=== PATIENT | female | born 1965 | race Caucasian/White ===

== ENCOUNTER 2016-06-21 08:59 | Day surgery (SDC) | payer OTHER ==
[~2016-06-21] VITALS: Ht 153.7 cm; Wt 66.9 kg
[~2016-06-21 08:59] MED LIST: ATIVAN0.5 MG PO; CARAFATE1 GM PO; COZAAR25 MG PO; COZAAR50 MG PO; CYMBALTA30 MG PO; ENDOCET 5-3251 EACH PO; FISH OIL 1,0001 EAC7 PO; IBUPROFEN800 MG PO; IRON325 M1 PO; IRON325 MG PO; LEVAQUIN500 MG PO; LEXAPRO20 MG PO; MELOXICAM15 MG PO; NEURONTIN100 MG PO; OXYCODONE-ACET1 EACH PO; PERCOCET 7.51 TABLET PO; PRILOSEC40 MG PO; TRAMADOL HCL50 MG PO; XANAX0.5 MG PO
== END 2016-06-21 10:37 | disposition home or self-care (01) ==
LOC: PAIN 08:59 → SDC 09:15 → PAIN 10:37
DX: M47.814 Spondylosis without myelopathy or radiculopathy, thoracic region (principal); M50.30 Other cervical disc degeneration, unspecified cervical region; G89.29 Other chronic pain; M51.36 Other intervertebral disc degeneration, lumbar region; M25.551 Pain in right hip; I10 Essential (primary) hypertension; D50.9 Iron deficiency anemia, unspecified; K21.9 Gastro-esophageal reflux disease without esophagitis; Z86.73 Personal history of transient ischemic attack (TIA), and cerebral infarction without residual deficits; F41.9 Anxiety disorder, unspecified; R73.09 Other abnormal glucose; Z79.891 Long term (current) use of opiate analgesic; Z79.899 Other long term (current) drug therapy
CPT/HCPCS: J1030; J1100; J2250; J3010; S0020

== ENCOUNTER 2016-07-19 07:09 | Day surgery (SDC) | payer OTHER ==
[~2016-07-19] VITALS: Ht 153.7 cm; Wt 66.9 kg
[~2016-07-19 07:09] MED LIST changes: +NEURONTIN300 MG PO
== END 2016-07-19 08:33 | disposition home or self-care (01) ==
LOC: PAIN 07:09
DX: M47.814 Spondylosis without myelopathy or radiculopathy, thoracic region (principal); F41.9 Anxiety disorder, unspecified; M50.30 Other cervical disc degeneration, unspecified cervical region; M51.36 Other intervertebral disc degeneration, lumbar region; M54.6 Pain in thoracic spine; M54.5 Low back pain; Z86.73 Personal history of transient ischemic attack (TIA), and cerebral infarction without residual deficits; I10 Essential (primary) hypertension; G89.29 Other chronic pain; M25.551 Pain in right hip; E78.01 Familial hypercholesterolemia; D50.9 Iron deficiency anemia, unspecified; R73.09 Other abnormal glucose; Z77.22 Contact with and (suspected) exposure to environmental tobacco smoke (acute) (chronic)
CPT/HCPCS: J1030; J2250; J3010; S0020